=== PATIENT | male | born 1960 | race Hispanic/Latino ===

== ENCOUNTER 2022-11-23 07:03 | Day surgery (SDC) | payer BC ==
[2022-11-17 14:32] LABS: BASOPHILS # (AUTO) 0.03 K/uL (0.00-0.20); BASOPHILS % (AUTO) 0.4 % (0.0-5.0); EOSINOPHILS # (AUTO) 0.32 K/uL (0.00-0.70); EOSINOPHILS % (AUTO) 4.1 % (0.0-8.0); HEMATOCRIT 51.2 % (42-54); IMMATURE GRANULOCYTE ABSOLUTE 0.04 K/uL (0-1); LYMPHOCYTES # (AUTO) 2.1 K/uL (1.0-4.8); LYMPHOCYTES % (AUTO) 26.4 % (21.0-51.0); MEAN CORPUSCULAR HEMOGLOBIN 27.3 pg (27.0-33.0); MEAN CORPUSCULAR HGB CONC 32.8 g/dL (32.0-36.0); MEAN CORPUSCULAR VOLUME 83.1 fL (79-99); MONOCYTES # (AUTO) 0.5 K/uL (0.1-1.0); MONOCYTES % (AUTO) 6.5 % (3.0-13.0); NEUTROPHILS # (AUTO) 4.9 K/uL (1.8-7.7); NEUTROPHILS % (AUTO) 62.1 % (40.0-77.0); PLATELET COUNT (AUTO) 202 K/uL (130-400); RED BLOOD CELL COUNT(AUTO) 6.16 MIL/uL (4.50-6.20); RED CELL DISTRIBUTION WIDTH 16.4 % (11.0-15.5); WHITE BLOOD COUNT (AUTO) 7.9 K/uL (4.8-10.8)
[2022-11-17 14:37] VITALS: BP 171/82; PULSE 76; RESP 18
[2022-11-17 14:38] LABS: APPEARANCE,URINE CLEAR (CLEAR); BILIRUBIN,URINE NEGATIVE (NEGATIVE); COLOR,URINE YELLOW (YELLOW); GLUCOSE, URINE (UA) >=1000 mg/dL (NEGATIVE); KETONES,URINE NEGATIVE (NEGATIVE); LEUKOCYTE ESTERASE ,URINE NEGATIVE Leu/uL (NEGATIVE); NITRATE,URINE NEGATIVE (NEGATIVE); OCCULT BLOOD,URINE NEGATIVE (NEGATIVE); PROTEIN,URINE NEGATIVE (NEGATIVE); UROBILINOGEN,URINE 0.2 mg/dL (0.2-1.0)
[2022-11-17 14:43] LABS: ADD UA MICROSCOPIC YES
[2022-11-17 14:44] LABS: POTASSIUM 4.3 mmol/L (3.5-5.1)
[2022-11-17 15:09] LABS: MUCUS,URINE RARE LPF (None Seen); RBC,URINE 0-1 /HPF (0-1); WBC,URINE 0-1 /HPF (0-1)
[2022-11-23] VITALS (19 sets, daily range): BP systolic 131–160; BP diastolic 68–80; PULSE 53–72; RESP 15–18
[~2022-11-23] VITALS: Ht 180.3 cm; Wt 85.9 kg
[~2022-11-23 07:03] MED LIST: ABAC1TAB15 PO; EMPA25TA PO; ESOM40CA54 PO; EZET10TA48 PO; LEVO-70 PO; LISI5TAB21 PO; REGULAR INSULIN SQ; SEMA1PEN3 SQ; TADA5TAB13 PO; USTE45DI SQ; [UNRECOGNIZED DRUG - CODE] PO
[2022-11-23] MEDS ORDERED: CEFTRIAXONE 1G VIAL ONE (07:23)
[2022-11-23] MEDS ORDERED: 0.9%NACL 1000ML 1,000 ML IV ONE (07:23)
[2022-11-23] MEDS ORDERED: FAMOTIDINE 20MG VIAL IV ONE (09:25)
[2022-11-23] MEDS ORDERED: HYDROMORPHONE 1 MG INJ ONE (09:25)
[2022-11-23] MEDS ORDERED: GLYCOPYRROLATE 1 MG/5 ML SYRINGE ONE (09:27)
[2022-11-23] MEDS ORDERED: LIDOCAINE PF 100MG/5ML (2%) SYRINGE 5ML ONE (09:27)
[2022-11-23] MEDS ORDERED: MIDAZOLAM HCL 1 MG/ML 2ML VIAL ONE (09:27)
[2022-11-23] MEDS ORDERED: ROCURONIUM 10MG/1ML SYR 10 MG/ML ML ONE (09:28)
[2022-11-23] MEDS ORDERED: FENTANYL CITRATE PF 50 MCG/1 ML 2ML VIAL ONE (09:28)
[2022-11-23] MEDS ORDERED: PROPOFOL 10 MG/ML 20ML VIAL IV ONE ×2 (09:28→11:00)
[2022-11-23] MEDS ORDERED: CEFTRIAXONE 1G VIAL IVPB ONE (09:50)
[2022-11-23] MEDS ORDERED: ONDANSETRON 4MG INJ ONE (10:09)
[2022-11-23] MEDS ORDERED: NEOSTIGMINE 5MG/5ML SYR IV ONE (10:57)
[2022-11-23] MEDS ORDERED: BACITRACIN 1 EACH PACKET TP ONE ×2 (12:54→13:17)
== END 2022-11-23 13:40 | disposition home or self-care (01) ==
LOC: DAH 07:03
PROVIDERS: ATTEND Urology
DX: N40.1 Benign prostatic hyperplasia with lower urinary tract symptoms (principal); Z20.822 Contact with and (suspected) exposure to COVID-19; R39.12 Poor urinary stream; R35.0 Frequency of micturition; I10 Essential (primary) hypertension; I25.10 Atherosclerotic heart disease of native coronary artery without angina pectoris; E11.9 Type 2 diabetes mellitus without complications; E78.5 Hyperlipidemia, unspecified; K21.9 Gastro-esophageal reflux disease without esophagitis; M19.90 Unspecified osteoarthritis, unspecified site; Z95.1 Presence of aortocoronary bypass graft; Z98.890 Other specified postprocedural states; Z79.899 Other long term (current) drug therapy; Z79.4 Long term (current) use of insulin
CPT/HCPCS: 71045; 87426; 80048; 85025; 87088; 81001; 36415; 93005; 52648; 88307; 82948 ×2; A6260; A4663; J7030 ×2; A4354; J3490 ×2; J3010; J1170; J2710; J2001; J0696 ×2; J2250; J2704 ×2; J2405; A4358; A4930; A4215; A4223; A4222; A4221; A4600

== ENCOUNTER → 2023-04-17 | Outpatient (CLI) | payer BC ==
[2023-04-17 17:03] LABS: CHOLESTEROL 202 mg/dL (<200); HDL CHOLESTEROL 51 mg/dL (29-71); LDL DIRECT 106 mg/dL (0-99); TRIGLYCERIDES 241 mg/dL (30-200)
== END | disposition home or self-care (01) ==
LOC: LAB 11:18
PROVIDERS: ATTEND Internal Medicine Cardiovascular Disease
DX: E78.5 Hyperlipidemia, unspecified (principal)
CPT/HCPCS: 36415; 80061